=== PATIENT | male | born 2000 | race Caucasian/White ===

== ENCOUNTER 2018-12-19 15:10 | Emergency (ER) | payer BC, OTHER ==
[2018-12-19] MEDS ORDERED: NA CHLORIDE 0.9% 1,000 ML ONE (15:47)
[2018-12-19 16:28] LABS: ALT/SGPT 22 U/L (12-78); AST/SGOT 14 U/L (15-37); Albumin 3.7 g/dL (3.4-5.0); Alkaline Phosphatase 52 U/L (45-117); BUN Blood Urea Nitrogen 11 mg/dL (7-18); Bicarbonate 25 mmol/L (21-32); Bilirubin Direct < 0.1 mg/dL (0-0.2); Bilirubin Total 0.2 mg/dL (0.2-1.0); Glucose Level 99 mg/dL (74-106); Lipase 195 U/L (73-393); Potassium 4.4 mmol/L (3.5-5.1); Protein, Total 6.7 g/dL (6.4-8.2); Sodium Level 142 mmol/L (136-145)
[2018-12-19 16:36] LABS: Absolute Lymphocytes (CBC) 4.2 K/uL (0.7-4.9); Basophils % 0.5 % (0-1.3); Hematocrit 45.9 % (39.6-49.0); Lymphocytes % 36.7 % (15.3-44.8); MPV 9.9 fL (7.6-11.3); RBC Red Blood Cell Count 5.38 M/uL (4.33-5.43)
--- NOTE | 2018-12-19 17:08 | RAD REPORT ---
EXAM DESCRIPTION: CT - Abdomen Pelvis W Contrast - 12/19/2018 4:42 pm CLINICAL HISTORY: Abdominal pain COMPARISON: 2012 TECHNIQUE: Computed axial tomography of the abdomen pelvis was obtained. 100 cc Isovue-300 was admin istered intravenously. Oral contrast was not requested which limits evaluation of bowel. All CT scans are performed using dose optimization technique as appropriate and may include automated exposure control or mA/KV adjustment according to patient size. FINDINGS: The liver, spleen, pancreas, adrenal and kidneys appear unremarkable. There is no evidence of diverticulitis. Appendectomy IMPRESSION: No acute abnormality is displayed.
--- NOTE | 2018-12-19 17:31 | ER ---
Nurse's Notes [facility] Name: Kimberly Dotson Age: 18 yrs Sex: Male : 2000 Arrival Date: 12/19/2018 Time: 15:13 Bed 18 Private MD: Diagnosis: Diarrhea, unspecified;Nausea and vomiting Presentation: 12/19 15:16 Presenting complaint: Patient states: nausea/vomiting/diarrhea x 2 weeks ago. Denies aa5 abd pain, reports abd bloating. Transition of care: patient was not received from another setting of care. Onset of symptoms was November 2018. Risk Assessment: Do you want to hurt yourself or someone else? Patient reports no desire to harm self or others. Initial Sepsis Screen: Does the patient meet any 2 criteria? No. Patient's initial sepsis screen is negative. Does the patient have a suspected source of infection? No. Patient's initial sepsis screen is negative. Care prior to arrival: None. 15:16 Acuity: [place] 3 aa5 15:16 Method Of Arrival: Ambulatory aa5 Historical: - Allergies: 15:17 No Known Allergies; aa5 - PMHx: 15:17 "high potassium levels"; aa5 - PSHx: 15:17 Tonsillectomy; Appendectomy; Adenoids; aa5 - Immunization history:: Adult Immunizations up to date. - Social history:: Smoking status: Patient/guardian denies using tobacco. - Ebola Screening: : No symptoms or risks identified at this time. Screenin:41 Abuse screen: Denies threats or abuse. Denies injuries from another. Nutritional aj1 screening: No deficits noted. Tuberculosis screening: No symptoms or risk factors identified. Fall Risk None identified. Assessment: 15:41 General: Appears in no apparent distress. comfortable, Behavior is calm, cooperative, aj1 appropriate for age. Pain: Denies pain. Neuro: Level of Consciousness is awake, alert, obeys commands, Oriented to person, place, time, situation. Cardiovascular: Patient's skin is warm and dry. Respiratory: Airway is patent Respiratory effort is even, unlabored, Respiratory pattern is regular, symmetrical. GI: Abdomen is flat, non-distended, Bowel sounds present X 4 quads. Abd is soft and non tender X 4 quads. Reports diarrhea. : No signs and/or symptoms were reported regarding the genitourinary system. EENT: No signs and/or symptoms were reported regarding the EENT system. Derm: No signs and/or symptoms reported regarding the dermatologic system. Skin is pink, warm \\T\\ dry. normal. Musculoskeletal: No signs and/or symptoms reported regarding the musculoskeletal system. Circulation, motion, and sensation intact. 16:45 Reassessment: Patient appears in no apparent distress at this time. No changes from aj1 previously documented assessment. Patient and/or family updated on plan of care and expected duration. Pain level reassessed. Patient is alert, oriented x 3, equal unlabored respirations, skin warm/dry/pink. 17:17 Reassessment: Patient appears in no apparent distress at this time. No changes from aj1 previously documented assessment. Patient and/or family updated on plan of care and expected duration. Pain level reassessed. Patient is alert, oriented x 3, equal unlabored respirations, skin warm/dry/pink. 18:02 Reassessment: Patient and/or family updated on plan of care and expected duration. Pain aj1 level reassessed. General: Appears in no apparent distress. comfortable, Behavior is calm, cooperative, appropriate for age. Pain: Denies pain. Neuro: Level of Consciousness is awake, alert, obeys commands, Oriented to person, place, time, situation. Cardiovascular: Patient's skin is warm and dry. Respiratory: Airway is patent Respiratory effort is even, unlabored, Respiratory pattern is regular, symmetrical. GI: Abdomen is flat, non-distended. : No signs and/or symptoms were reported regarding the genitourinary system. Derm: No signs and/or symptoms reported regarding the dermatologic system. Skin is pink, warm \\T\\ dry. normal. Musculoskeletal: No signs and/or symptoms reported regarding the musculoskeletal system. Circulation, motion, and sensation intact. Vital Signs: 15:17 BP 131 / 77; Pulse 76; Resp 16 S; Temp 97.4(TE); Pulse Ox 99% on R/A; Pain 0/10; aa5 18:03 BP 127 / 85; Pulse 72; Resp 18; Pulse Ox 97% on R/A; aj1 ED Course: 15:13 Patient arrived in ED. as 15:16 Arm band placed on. aa5 15:17 Triage completed. aa5 15:18 Josefina Lala FNP-C [facility]. kb 15:18 Flash Mills MD is Attending Physician. kb 15:33 Radiology exam delayed due to lab results not completed at this time. (BUN/Creatinine). 15:35 Cassia Diaz, RN is Primary Nurse. aj1 15:41 Patient has correct armband on for positive identification. aj1 15:41 No provider procedures requiring assistance completed. aj1 15:46 Initial lab(s) drawn, by me, sent to lab. Inserted saline lock: 22 gauge in right jp3 antecubital area, using aseptic technique. Blood collected. Patient maintains SpO2 saturation greater than 95% on room air. 16:[address] via wheelchair. oh 16:42 CT completed. Patient tolerated procedure well. Patient moved back from CT. oh 16:42 CT Abd/Pelvis - IV Contrast Only In Process Unspecified. EDMS 18:04 IV discontinued, intact, bleeding controlled, No redness/swelling at site. Pressure aj1 dressing applied. Administered Medications: 15:50 Drug: NS 0.9% 1000 ml Route: IV; Rate: 1000 ml; Site: right antecubital; aj1 18:04 Follow up: IV Status: Completed infusion; IV Intake: 1000ml aj1 Intake: 18:04 IV: 1000ml; Total: 1000ml. aj1 Outcome: 17:30 Discharge ordered by . kb 18:09 Discharged to home ambulatory. aj1 18:09 Condition: good 18:09 Discharge instructions given to patient, Instructed on discharge instructions, follow up and referral plans. medication usage, Demonstrated understanding of instructions, follow-up care, medications. 18:09 Patient left the ED. aj1 Signatures: Dispatcher [employer] EDMD Josefina Lala FNP-C METAPHYSICS TEACHER-CkCassia Wallace, RN RN aj1 Viktoriya Eaton Amelia as Calderon, Audri, KIMO RN aa5 Fazal Vargas Jacob jp3
--- NOTE | 2018-12-19 17:32 | EDPHYS ---
Physician Documentation [facility] Name: Kimberly Dotson Age: 18 yrs Sex: Male : 2000 Arrival Date: 12/19/2018 Time: 15:13 Bed 18 Private MD: ED Physician Flash Mills HPI: 12/19 17:06 This 18 yrs old Male presents to ER via Ambulatory with complaints of kb Diarrhea. 17:06 The patient has not experienced similar symptoms in the past. The patient has not kb recently seen a physician. 17:06 The patient presents with abdominal pain in the lower abdomen. Onset: The kb symptoms/episode began/occurred 2 week(s) ago. The symptoms do not radiate. Associated signs and symptoms: Pertinent positives: nausea, vomiting, and diarrhea. The symptoms are described as constant. Modifying factors: The symptoms are alleviated by nothing, the symptoms are aggravated by nothing. Severity of pain: At its worst the pain was moderate in the emergency department the pain is unchanged. Pt reports abd pain, diarrhea and vomiting for 2 weeks.. Historical: - Allergies: 15:17 No Known Allergies; aa5 - PMHx: 15:17 "high potassium levels"; aa5 - PSHx: 15:17 Tonsillectomy; Appendectomy; Adenoids; aa5 - Immunization history:: Adult Immunizations up to date. - Social history:: Smoking status: Patient/guardian denies using tobacco. - Ebola Screening: : No symptoms or risks identified at this time. ROS: 17:04 Constitutional: Negative for fever, chills, and weight loss, ENT: Negative for injury, kb pain, and discharge, Neck: Negative for injury, pain, and swelling, Cardiovascular: Negative for chest pain, palpitations, and edema, Respiratory: Negative for shortness of breath, cough, wheezing, and pleuritic chest pain, Back: Negative for injury and pain, : Negative for injury, bleeding, discharge, and swelling, MS/Extremity: Negative for injury and deformity, Skin: Negative for injury, rash, and discoloration, Neuro: Negative for headache, weakness, numbness, tingling, and seizure. 17:04 Abdomen/GI: Positive for abdominal pain, nausea, vomiting, and diarrhea. Exam: 17:03 Constitutional: This is a well developed, well nourished patient who is awake, alert, kb and in no acute distress. Head/Face: Normocephalic, atraumatic. Neck: Trachea midline, no thyromegaly or masses palpated, and no cervical lymphadenopathy. Supple, full range of motion without nuchal rigidity, or vertebral point tenderness. No Meningismus. Chest/axilla: Normal chest wall appearance and motion. Nontender with no deformity. No lesions are appreciated. Cardiovascular: Regular rate and rhythm with a normal S1 and S2. No gallops, murmurs, or rubs. Normal PMI, no JVD. No pulse deficits. Respiratory: Lungs have equal breath sounds bilaterally, clear to auscultation and percussion. No rales, rhonchi or wheezes noted. No increased work of breathing, no retractions or nasal flaring. Back: No spinal tenderness. No costovertebral tenderness. Full range of motion. Skin: Warm, dry with normal turgor. Normal color with no rashes, no lesions, and no evidence of cellulitis. MS/ Extremity: Pulses equal, no cyanosis. Neurovascular intact. Full, normal range of motion. Neuro: Awake and alert, GCS 15, oriented to person, place, time, and situation. Cranial nerves II-XII grossly intact. Motor strength 5/5 in all extremities. Sensory grossly intact. Cerebellar exam normal. Normal gait. 17:03 Abdomen/GI: Inspection: abdomen appears normal, Bowel sounds: normal, in all quadrants, Palpation: soft, in all quadrants, mild abdominal tenderness, in the right upper quadrant, moderate abdominal tenderness, in the right lower quadrant and left lower quadrant. Vital Signs: 15:17 BP 131 / 77; Pulse 76; Resp 16 S; Temp 97.4(TE); Pulse Ox 99% on R/A; Pain 0/10; aa5 18:03 BP 127 / 85; Pulse 72; Resp 18; Pulse Ox 97% on R/A; aj1 MDM: 15:18 Patient medically screened. kb 17:03 Data reviewed: vital signs, nurses notes. Data interpreted: Pulse oximetry: on room air kb is 99 %. Interpretation: normal. 17:18 Counseling: I had a detailed discussion with the patient and/or guardian regarding: the kb historical points, exam findings, and any diagnostic results supporting the discharge/admit diagnosis, lab results, radiology results, the need for outpatient follow up, a family practitioner, to return to the emergency department if symptoms worsen or persist or if there are any questions or concerns that arise at home. 12/19 15:24 Order name: Basic Metabolic Panel; Complete Time: 16:30 kb 12/19 15:24 Order name: CBC with Diff; Complete Time: 16:50 kb 12/19 15:24 Order name: Hepatic Function; Complete Time: 16:30 kb 12/19 15:24 Order name: Lipase; Complete Time: 16:30 kb 12/19 15:24 Order name: CT Abd/Pelvis - IV Contrast Only; Complete Time: 17:15 kb 12/19 15:24 Order name: IV Saline Lock; Complete Time: 15:45 kb 12/19 15:24 Order name: Labs collected and sent; Complete Time: 15:45 kb Administered Medications: 15:50 Drug: NS 0.9% 1000 ml Route: IV; Rate: 1000 ml; Site: right antecubital; aj 18:04 Follow up: IV Status: Completed infusion; IV Intake: 1000ml aj Disposition: 12/20 08:16 Co-signature as Attending Physician, Flash Mills MD I agree with the assessment and kdr plan of care. Disposition: 12/19/18 17:30 Discharged to Home. Impression: Diarrhea, unspecified, Nausea and vomiting. - Condition is Stable. - Discharge Instructions: Nausea and Vomiting, Adult, [id number], Diarrhea, Adult, [id number]. - Prescriptions for Zofran 4 mg Oral Tablet - take 1 tablet by ORAL route every 6 hours As needed; 20 tablet. - Medication Reconciliation Form, Thank You Letter, Antibiotic Education, Prescription Opioid Use form. - Follow up: Emergency Department; When: As needed; Reason: Worsening of condition. Follow up: Private Physician; When: 2 - 3 days; Reason: Recheck today's complaints, Continuance of care, Re-evaluation by your physician. Signatures: Dispatcher [employer] Josefina Torres FNP-C FNP-Cassia Lopez RN RN aj1 Flash Mills MD MD kdr Calderon, Audri RN RN aa5 Corrections: (The following items were deleted from the chart) 12/19 18:09 17:30 12/19/2018 17:30 Discharged to Home. Impression: Diarrhea, unspecified; Nausea aj1 and vomiting. Condition is Stable. Forms are Medication Reconciliation Form, Thank You Letter, Antibiotic Education, Prescription Opioid Use. Follow up: Emergency Department; When: As needed; Reason: Worsening of condition. Follow up: Private Physician; When: 2 - 3 days; Reason: Recheck today's complaints, Continuance of care, Re-evaluation by your physician. kb
[2018-12-19 18:44] VITALS: TEMP 97.4
[2018-12-19 18:45] VITALS: BP 127/85; O2SAT 97
== END 2018-12-19 18:09 | disposition home or self-care (01) ==
LOC: ER 15:10
DX: R11.2 Nausea with vomiting, unspecified (principal)
CPT/HCPCS: 96361; 85025; 80048; 36415; 80076; 83690; 74177; 96360; 99285; Q9967; J7030

== ENCOUNTER 2019-04-08 06:27 | Emergency (ER) | payer BC ==
[2019-04-08 07:38] LABS: Basophils % 0.8 % (0-1.3); Lymphocytes % 44.1 % (15.3-44.8); MPV 10.1 fL (7.6-11.3); RBC Red Blood Cell Count 5.67 M/uL (4.33-5.43)
[2019-04-08 07:41] LABS: Protime INR 0.95
[2019-04-08 07:42] LABS: Barbiturates NEGATIVE (NEGATIVE); Benzodiazepines NEGATIVE (NEGATIVE); Cocaine NEGATIVE (NEGATIVE); METHAMPHETAM NEGATIVE (NEGATIVE); Methadone NEGATIVE (NEGATIVE); Opiates NEGATIVE (NEGATIVE); Phencyclidine NEGATIVE (NEGATIVE); THC Cannibis POSITIVE (NEGATIVE)
[2019-04-08 07:44] LABS: Urine Blood NEGATIVE (NEG); Urine Glucose NEGATIVE (NEG); Urine Protein NEGATIVE (NEG); Urine Specific Gravity >1.030 (1.005-1.030)
[2019-04-08 07:51] LABS: ALT/SGPT 17 U/L (12-78); AST/SGOT 11 U/L (15-37); Albumin 4.3 g/dL (3.4-5.0); Alkaline Phosphatase 59 U/L (45-117); BUN Blood Urea Nitrogen 13 mg/dL (7-18); Bicarbonate 23 mmol/L (21-32); Bilirubin Direct < 0.1 mg/dL (0-0.2); Bilirubin Total 0.3 mg/dL (0.2-1.0); Glucose Level 103 mg/dL (74-106); Potassium 4.2 mmol/L (3.5-5.1); Protein, Total 7.7 g/dL (6.4-8.2); Sodium Level 140 mmol/L (136-145)
--- NOTE | 2019-04-08 12:14 | EKG ---
Test Date: 2019-04-08 Test Time: 07:13:47 Copying Machine Mechanic: ALONSO MEASUREMENT RESULTS: Intervals: Rate: 72 NC: 148 QRSD: 84 QT: 354 QTc: 387 [place]: P: 23 NC: 148 QRS: 75 T: 55 INTERPRETIVE STATEMENTS: Normal sinus rhythm with sinus arrhythmia Normal ECG Compared to ECG 06/16/2014 12:39:38 No significant changes Electronically Signed On 04-08-19 12:13:39 IT PROGRAMMER by Dony Serrano
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
[2019-04-08 13:46] VITALS: BP 144/89; TEMP 98.4; O2SAT 98
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
== END 2019-04-08 13:39 | disposition home or self-care (01) ==
LOC: ER 06:27
DX: F32.9 Major depressive disorder, single episode, unspecified (principal); F41.1 Generalized anxiety disorder; F43.10 Post-traumatic stress disorder, unspecified; Z88.0 Allergy status to penicillin
CPT/HCPCS: 36415; 80048; 80076; 80307; 80320; 80329; 81003; 85025; 85610; 85730; 93005; 99284

== ENCOUNTER 2019-04-26 17:45 | Emergency (ER) | payer BC ==
--- NOTE | 2019-04-26 19:46 | EDPHYS ---
Physician Documentation [facility] Name: Kimberly Dotson Age: 19 yrs Sex: Male : 2000 Arrival Date: 04/26/2019 Time: 17:49 Bed 12 Private MD: ED Physician Flash Mills HPI: 04/25 18:58 This 19 yrs old Male presents to ER via Unassigned with complaints of Flu la1 Symptoms. 18:58 The patient or guardian reports cough. Onset: The symptoms/episode began/occurred 2 la1 day(s) ago. Modifying factors: The symptoms are alleviated by nothing. the symptoms are aggravated by nothing. Associated signs and symptoms: Pertinent positives: diarrhea. Severity of symptoms: At their worst the symptoms were mild. The patient has not experienced similar symptoms in the past. Historical: - Allergies: 19:54 PENICILLINS; dm5 - Home Meds: 19:54 None [Active]; dm5 - PMHx: 19:54 "high potassium levels"; Depression; dm5 - PSHx: 19:54 None; dm5 - Immunization history:: Adult Immunizations up to date. - Social history:: Smoking status: Patient denies any tobacco usage or history of. ROS: 18:58 Constitutional: Negative for fever, chills, and weight loss, Eyes: Negative for injury, la1 pain, redness, and discharge, ENT: Negative for injury, pain, and discharge, Neck: Negative for injury, pain, and swelling, Cardiovascular: Negative for chest pain, palpitations, and edema, Respiratory: Negative for shortness of breath, cough, wheezing, and pleuritic chest pain. 18:58 Back: Negative for injury and pain, : Negative for injury, bleeding, discharge, and swelling, MS/Extremity: Negative for injury and deformity, Neuro: Negative for headache, weakness, numbness, tingling, and seizure. 18:58 Abdomen/GI: Positive for diarrhea. Exam: 18:59 Constitutional: This is a well developed, well nourished patient who is awake, alert, la1 and in no acute distress. Head/Face: Normocephalic, atraumatic. Eyes: Pupils equal round and reactive to light, extra-ocular motions intact. ENT: Nares patent. No nasal discharge, no septal abnormalities noted. Tympanic membranes are normal and external auditory canals are clear. Oropharynx with no redness, swelling, or masses, exudates, or evidence of obstruction, uvula midline. Mucous membranes moist. Neck: Trachea midline, Chest/axilla: Normal chest wall appearance and motion. Nontender with no deformity. No lesions are appreciated. Cardiovascular: Regular rate and rhythm with a normal S1 and S2. Respiratory: Lungs have equal breath sounds bilaterally, clear to auscultation Back: No spinal tenderness. No costovertebral tenderness. Full range of motion. Skin: Warm, dry with normal turgor. Normal color with no rashes, no lesions, and no evidence of cellulitis. 18:59 Constitutional: The patient appears Vital Signs: 18:15 BP 115 / 65; Pulse 79; Resp 18; Temp 98.6; Pulse Ox 100% on R/A; dm5 MDM: 18:59 Patient medically screened. la1 19:45 Data reviewed: vital signs, nurses notes, lab test result(s), I have discussed the la1 patient's presentation/case with the attending Emergency Department Physician; and as a result, I will discharge patient. Data interpreted: Pulse oximetry: on room air is 100 %. Interpretation: normal. Counseling: I had a detailed discussion with the patient and/or guardian regarding: the historical points, exam findings, and any diagnostic results supporting the discharge/admit diagnosis, lab results, the need for outpatient follow up, a family practitioner. Special discussion: I discussed with the patient/guardian that the patient's current presentation does not indicate dosing of antibiotics. They should follow-up with their primary care provider and return if the symptoms persist or progress. 04/25 18:56 Order name: Flu la1 04/25 18:56 Order name: Strep la1 04/25 19:46 Order name: Throat Culture EDMS Administered Medications: No medications were administered Disposition: 04/26/19 19:46 Discharged to Home. Impression: Cough, Acute pharyngitis. - Condition is Stable. - Discharge Instructions: Sore Throat, Cough, Adult. - Medication Reconciliation Form, Thank You Letter form. - Follow up: Private Physician; When: 2 - 3 days; Reason: Recheck today's complaints, Re-evaluation by your physician. - Problem is new. - Symptoms have improved. Addendum: 04/29/2019 10:46 Co-signature as Attending Physician, Flash Mills MD I agree with the assessment and k dr plan of care. Signatures: Dispatcher [employer] Katie Montemayor, RN RN dm5 Flash Mills MD MD [facility] Oscar Mendoza, CONVEYANCER-C CONVEYANCER-Cla1 Corrections: (The following items were deleted from the chart) 04/25 19:58 19:46 04/26/2019 19:46 Discharged to Home. Impression: Cough; Acute pharyngitis. dm5 Condition is Stable. Forms are Medication Reconciliation Form, Thank You Letter, Antibiotic Education, Prescription Opioid Use. Follow up: Private Physician; When: 2 - 3 days; Reason: Recheck today's complaints, Re-evaluation by your physician. Problem is new. Symptoms have improved. la1
--- NOTE | 2019-04-26 19:46 | ER ---
Nurse's Notes [facility] Name: Kimberly Dotson Age: 19 yrs Sex: Male : 2000 Arrival Date: 04/26/2019 Time: 17:49 Bed 12 Private MD: Diagnosis: Cough;Acute pharyngitis Presentation: 04/25 18:15 Chief complaint: Patient states: has a cough and sore throat and will be around an dm5 immunocompromised person and wanted to get checked out. Coronavirus screen: The patient has NOT traveled to a country currently being monitored by the [facility] [place] within the last 14 days. Proceed with normal triage procedures. The patient has NOT had contact with any known and/or suspected case of coronavirus. Proceed with normal triage procedures. Ebola Screen: Patient negative for fever greater than or equal to 101.5 degrees Fahrenheit, and additional compatible Ebola Virus Disease symptoms Patient denies exposure to infectious person. Patient denies travel to an Ebola-affected area in the 21 days before illness onset. No symptoms or risks identified at this time. Initial Sepsis Screen: Does the patient meet any 2 criteria? No. Patient's initial sepsis screen is negative. Does the patient have a suspected source of infection? No. Patient's initial sepsis screen is negative. Risk Assessment: Do you want to hurt yourself or someone else? Patient reports no desire to harm self or others. 18:15 Method Of Arrival: Ambulatory dm5 18:55 Acuity: [place] 4 dm5 Triage Assessment: 19:54 General: Appears in no apparent distress. Behavior is calm, cooperative. Pain: dm5 Complains of pain in throat. Historical: - Allergies: 19:54 PENICILLINS; dm5 - Home Meds: 19:54 None [Active]; dm5 - PMHx: 19:54 "high potassium levels"; Depression; dm5 - PSHx: 19:54 None; dm5 - Immunization history:: Adult Immunizations up to date. - Social history:: Smoking status: Patient denies any tobacco usage or history of. Screenin:55 Abuse screen: Denies threats or abuse. Denies injuries from another. Nutritional dm5 screening: No deficits noted. Tuberculosis screening: No symptoms or risk factors identified. Fall Risk None identified. Assessment: 19:55 Reassessment: Patient appears in no apparent distress at this time. Patient and/or dm5 family updated on plan of care and expected duration. Pain level reassessed. Patient is alert, oriented x 3, equal unlabored respirations, skin warm/dry/pink. Vital Signs: 18:15 BP 115 / 65; Pulse 79; Resp 18; Temp 98.6; Pulse Ox 100% on R/A; dm5 ED Course: 17:49 Patient arrived in ED. mr 17:51 RejiOscar[facility] la1 17:51 Flash Mills MD is Attending Physician. la1 18:55 Triage completed. dm5 19:52 Katie Milan, RN is Primary Nurse. dm5 19:54 Arm band placed on right wrist. dm5 19:55 Patient has correct armband on for positive identification. dm5 19:55 No provider procedures requiring assistance completed. Patient did not have IV access dm5 during this emergency room visit. Administered Medications: No medications were administered Outcome: 19:46 Discharge ordered by MD. la1 19:55 Discharged to home dm5 19:55 Condition: good 19:55 Discharge instructions given to patient. 19:58 Patient left the ED. dm5 Signatures: Katie Milan, RN RN tyrel Kamar Meche mr Birdiegabe Oscar, IMELDA-C VOLUNTEER FIRE FIGHTER-Cla1
[2019-04-26 20:11] VITALS: BP 115/65; TEMP 98.6; O2SAT 100
== END 2019-04-26 19:58 | disposition home or self-care (01) ==
LOC: ER 17:45
DX: J02.9 Acute pharyngitis, unspecified (principal); Z88.0 Allergy status to penicillin
CPT/HCPCS: 87070; 87081; 87804; 99281

== ENCOUNTER 2020-02-14 13:05 | Emergency (ER) | payer BC ==
[2020-02-14 15:08] LABS: SARS-COV-2 RT PCR POSITIVE (NEGATIVE)
--- NOTE | 2020-02-14 15:48 | RAD REPORT ---
EXAM DESCRIPTION: CT - Head Brain Wo Cont - 02/14/2020 3:36 pm CLINICAL HISTORY: DIZZINESS COMPARISON: MAXILLOFACIAL W O CONTRAST dated 07/12/2010 TECHNIQUE: Axial 5 mm thick images of the head were obtained without IV contrast. All CT scans are performed using dose optimization technique as appropriate and may include automated exposure control or mA/KV adjustment according to patient size. FINDINGS: No intracranial hemorrhage, mass, edema or shift of mid-line structures. No acute infarcti on changes seen. No abnormal extra-axial fluid collections. Ventricles are normal. Mastoid air cells and visualized portions of the paranasal sinuses are clear. No acute bony findings. IMPRESSION: Negative non-contrast CT head examination.
--- NOTE | 2020-02-14 15:58 | EDPHYS ---
Physician Documentation [facility] Name: Kimberly Castaneda Age: 19 yrs Sex: Male : 2000 Arrival Date: 02/14/2020 Time: 13:12 Bed 13 Private MD: ED Physician Dhruv Sesay HPI: 02/13 16:53 This 19 yrs old Male presents to ER via Ambulatory with complaints of Cough, kb Fever, Near Syncope. 16:53 The patient or guardian reports cough, flu symptoms, low-grade fever, myalgias. Onset: kb The symptoms/episode began/occurred 3 day(s) ago. Severity of symptoms: At their worst the symptoms were moderate, in the emergency department the symptoms are unchanged. Modifying factors: The symptoms are alleviated by nothing, the symptoms are aggravated by nothing. Associated signs and symptoms: Pertinent positives: fever, nausea, sore throat. The patient has not experienced similar symptoms in the past, but family has similar symptoms, spouse. The patient has not recently seen a physician. Pt reports cough, body aches, loss of taste and smell, dizziness, nausea and headache. . Historical: - Allergies: 13:34 PENICILLINS; ca1 - PMHx: 13:34 "high potassium levels"; Depression; ca1 - PSHx: 13:34 Appendectomy; ca1 - Immunization history:: Adult Immunizations Flu vaccine is not up to date. - Social history:: Smoking status: Reported history of juuling and/or vaping. Patient uses street drugs, marijuana. ROS: 16:52 Cardiovascular: Negative for chest pain, palpitations, and edema, Back: Negative for kb injury and pain, MS/Extremity: Negative for injury and deformity, Skin: Negative for injury, rash, and discoloration. 16:52 Constitutional: Positive for body aches, chills, fatigue, fever, malaise. 16:52 Respiratory: Positive for cough, Negative for dyspnea on exertion, hemoptysis, orthopnea, pleurisy, shortness of breath, sputum production, wheezing. 16:52 Abdomen/GI: Positive for nausea. 16:52 Neuro: Positive for dizziness. Exam: 16:52 Constitutional: This is a well developed, well nourished patient who is awake, alert, kb and in no acute distress. Head/Face: Normocephalic, atraumatic. Chest/axilla: Normal chest wall appearance and motion. Nontender with no deformity. No lesions are appreciated. Cardiovascular: Regular rate and rhythm with a normal S1 and S2. No gallops, murmurs, or rubs. Normal PMI, no JVD. No pulse deficits. Respiratory: Lungs have equal breath sounds bilaterally, clear to auscultation and percussion. No rales, rhonchi or wheezes noted. No increased work of breathing, no retractions or nasal flaring. Abdomen/GI: Soft, non-tender, with normal bowel sounds. No distension or tympany. No guarding or rebound. No evidence of tenderness throughout. Skin: Warm, dry with normal turgor. Normal color with no rashes, no lesions, and no evidence of cellulitis. MS/ Extremity: Pulses equal, no cyanosis. Neurovascular intact. Full, normal range of motion. Neuro: Awake and alert, GCS 15, oriented to person, place, time, and situation. Cranial nerves II-XII grossly intact. Motor strength 5/5 in all extremities. Sensory grossly intact. Cerebellar exam normal. Normal gait. Vital Signs: 13:30 BP 126 / 87; Pulse 82; Resp 16 S; Temp 99.0(O); Pulse Ox 97% on R/A; Weight 65.77 kg ca1 (R); Height 5 ft. 11 in. (180.34 cm) (R); Pain 0/10; 15:45 BP 124 / 77 RA Supine (auto/reg); Pulse 63; Pulse Ox 98% on R/A; jp3 15:47 BP 128 / 94 RA Sitting (auto/reg); Pulse 65; Pulse Ox 98% on R/A; jp3 15:49 BP 127 / 91 RA Standing (auto/reg); Pulse 79; Pulse Ox 98% on R/A; jp3 13:30 Body Mass Index 20.22 (65.77 kg, 180.34 cm) ca1 15:45 Pt reports "heavy pressure in my head/ ringing in my ear" jp3 15:47 Pt reports "body tingles" jp3 15:49 pt states "more intense body tingles" jp3 MDM: 15:06 Patient medically screened. kb 16:53 Data reviewed: vital signs, nurses notes. Data interpreted: Pulse oximetry: on room air kb is 98 %. Interpretation: normal. Counseling: I had a detailed discussion with the patient and/or guardian regarding: the historical points, exam findings, and any diagnostic results supporting the discharge/admit diagnosis, lab results, radiology results, the need for outpatient follow up, a family practitioner, to return to the emergency department if symptoms worsen or persist or if there are any questions or concerns that arise at home. 02/13 15:08 Order name: COVID-19/FLU A+B; Complete Time: 15:08 EDMS 02/13 15:24 Order name: CT Head Brain wo Cont; Complete Time: 15:57 kb 02/13 15:24 Order name: Orthostatics; Complete Time: 15:54 kb Administered Medications: No medications were administered Disposition: 02/14/20 15:58 Discharged to Home. Impression: Coronavirus infection, unspecified. - Condition is Stable. - Discharge Instructions: Viral Respiratory Infection, Fovc-Lr-Gven, COVID-19. - Prescriptions for Zofran 4 mg Oral Tablet - take 1 tablet by ORAL route every 6 hours As needed; 20 tablet. - Medication Reconciliation Form, Thank You Letter, Antibiotic Education, Prescription Opioid Use, Work release form form. - Follow up: Emergency Department; When: As needed; Reason: Worsening of condition. Follow up: Private Physician; When: 2 - 3 days; Reason: Recheck today's complaints, Continuance of care, Re-evaluation by your physician. Addendum: 02/16/2020 07:38 Co-signature as Attending Physician, Dhruv Sesay MD I agree with the assessment and t w4 plan of care. Signatures: Dispatcher [employer] [facility] Josefina Lala, EYEGLASS FRAME TRUER-C EYEGLASS FRAME TRUER-Facundo Foster, RN RN bp Dhruv Sesay MD MD tw4 Priyanka James RN RN ca1 Corrections: (The following items were deleted from the chart) 02/13 14:15 13:55 Influenza Screen (A \\T\\ B)+BA.LAB.BRZ ordered. [facility] EDAZ 14:16 13:55 CORONAVIRUS+MR.LAB.BRZ ordered. [facility] EDMS 16:18 15:58 02/14/2020 15:58 Discharged to Home. Impression: Coronavirus infection, bp unspecified. Condition is Stable. Forms are Medication Reconciliation Form, Thank You Letter, Antibiotic Education, Prescription Opioid Use. Follow up: Emergency Department; When: As needed; Reason: Worsening of condition. Follow up: Private Physician; When: 2 - 3 days; Reason: Recheck today's complaints, Continuance of care, Re-evaluation by your physician. kb
--- NOTE | 2020-02-14 15:58 | ER ---
[facility] Name: Kimberly Castaneda Age: 19 yrs Sex: Male : 2000 Arrival Date: 02/14/2020 Time: 13:12 Bed 13 Private MD: Diagnosis: Coronavirus infection, unspecified Presentation: 02/13 13:30 Chief complaint: Patient states: Last night, was making waffles at the kitchen then ca1 passed out. Couldn't open my eyes, threw up, trying not to poop on myself and was profusely sweating. Then I got better. Today, I was walking my dog and I got dizzy like I will pass out again. Had Covid testing, pending result. Covid S/S fever, cough, no taste and smell x 3 days. Coronavirus screen: cough unrelated to allergies, fever, loss of taste or smell, Client presents with at least one sign or symptom that may indicate coronavirus-19. Standard/surgical mask placed on the client. Provider contacted for isolation considerations. Coronavirus screen: The client indicates previous COVID test results are pending. Date of collection: February 13, 2020. Ebola Screen: Patient negative for fever greater than or equal to 101.5 degrees Fahrenheit, and additional compatible Ebola Virus Disease symptoms Patient denies exposure to infectious person. Patient denies travel to an Ebola-affected area in the 21 days before illness onset. No symptoms or risks identified at this time. Initial Sepsis Screen: Does the patient meet any 2 criteria? No. Patient's initial sepsis screen is negative. Does the patient have a suspected source of infection? No. Patient's initial sepsis screen is negative. Risk Assessment: Do you want to hurt yourself or someone else? Patient reports no desire to harm self or others. Onset of symptoms was February 14, 2020. 13:30 Method Of Arrival: Ambulatory ca1 13:30 Acuity: [place] 3 ca1 Triage Assessment: 15:30 General: Appears in no apparent distress. uncomfortable, ill, Behavior is cooperative, bp appropriate for age, anxious. Pain: Denies pain. EENT: No deficits noted. Neuro: Reports a syncopal episode. Cardiovascular: No deficits noted. Respiratory: Reports cough that is. GI: No signs and/or symptoms were reported involving the gastrointestinal system. : No signs and/or symptoms were reported regarding the genitourinary system. Derm: No deficits noted. Musculoskeletal: No deficits noted. Historical: - Allergies: 13:34 PENICILLINS; ca1 - PMHx: 13:34 "high potassium levels"; Depression; ca1 - PSHx: 13:34 Appendectomy; ca1 - Immunization history:: Adult Immunizations Flu vaccine is not up to date. - Social history:: Smoking status: Reported history of juuling and/or vaping. Patient uses street drugs, marijuana. Screenin:30 Abuse screen: Denies threats or abuse. Denies injuries from another. Nutritional bp screening: No deficits noted. Tuberculosis screening: No symptoms or risk factors identified. Fall Risk None identified. Assessment: 15:30 General: SEE TRIAGE NOTE. bp 16:07 Reassessment: PT D/C HOME AMBULATORY WITH FAMILY, DX WITH CORONAVIRUS URI. bp Vital Signs: 13:30 BP 126 / 87; Pulse 82; Resp 16 S; Temp 99.0(O); Pulse Ox 97% on R/A; Weight 65.77 kg ca1 (R); Height 5 ft. 11 in. (180.34 cm) (R); Pain 0/10; 15:45 BP 124 / 77 RA Supine (auto/reg); Pulse 63; Pulse Ox 98% on R/A; jp3 15:47 BP 128 / 94 RA Sitting (auto/reg); Pulse 65; Pulse Ox 98% on R/A; jp3 15:49 BP 127 / 91 RA Standing (auto/reg); Pulse 79; Pulse Ox 98% on R/A; jp3 13:30 Body Mass Index 20.22 (65.77 kg, 180.34 cm) ca1 15:45 Pt reports "heavy pressure in my head/ ringing in my ear" jp3 15:47 Pt reports "body tingles" jp3 15:49 pt states "more intense body tingles" jp3 ED Course: 13:12 Patient arrived in ED. rg4 13:33 Triage completed. ca1 13:34 Arm band placed on right wrist. ca1 13:52 Josefina Lala FNP-C [facility]. kb 13:52 Dhruv Sesay MD is Attending Physician. kb 13:55 Pulse ox on. NIBP on. jp3 13:55 COVID swab sent to lab. Flu and/or RSV swab sent to lab. jp3 15:30 Patient has correct armband on for positive identification. Bed in low position. Call bp light in reach. Side rails up X2. 15:31 Facundo Wei, RN is Primary Nurse. bp 15:36 CT Head Brain wo Cont In Process Unspecified. EDMS 16:07 No provider procedures requiring assistance completed. Patient did not have IV access bp during this emergency room visit. Administered Medications: No medications were administered Outcome: 15:58 Discharge ordered by . christa 16:08 Discharged to home ambulatory. bp 16:08 Condition: stable 16:08 Discharge instructions given to patient, Instructed on discharge instructions, follow up and referral plans. medication usage, Demonstrated understanding of instructions, follow-up care, medications, Prescriptions given X 1. 16:18 Patient left the ED. bp Signatures: Dispatcher [employer] [facility] Josefina Lala, SIGNING TEACHER-C SIGNING TEACHER-Mary Brown rg4 Facundo Wei, RN RN bp Tobi Doherty jp3 Priyanka James, RN RN ca1
[2020-02-14 16:22] VITALS: TEMP 99
[2020-02-14 16:23] VITALS: O2SAT 98
[2020-02-14 16:25] VITALS: BP 127/91
== END 2020-02-14 16:18 | disposition home or self-care (01) ==
LOC: ER 13:05
DX: U07.1 COVID-19 (principal); Z88.0 Allergy status to penicillin; Z87.891 Personal history of nicotine dependence
CPT/HCPCS: 0240U; 70450; 99284

== ENCOUNTER 2020-08-10 18:26 | Emergency (ER) | payer BC ==
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
[2020-08-10 19:20] LABS: Urine Blood Negative (Negative); Urine Glucose Negative (Negative); Urine Protein Negative (Negative)
[2020-08-10] MEDS ORDERED: HYDROCODONE/APAP 5/325 MG TAB ONE (19:35)
[2020-08-10 19:56] LABS: Urine Bacteria NONE SEEN /HPF (NONE SEEN); Urine RBC <5 /HPF (NONE SEEN); Urine Sperm PRESENT (NONE SEEN)
--- NOTE | 2020-08-10 20:51 | RAD REPORT ---
EXAM DESCRIPTION: US - Scrotum Testicles - 08/10/2020 8:09 pm CLINICAL HISTORY: Swelling;Pain COMPARISON: Abdomen Pelvis W Contrast dated 12/19/2018 FINDINGS: Both testicles show homogeneous echogenicity with no intratesticular mass lesion. Doppler evaluation shows normal blood flow in each testicle. No epididymis enlargement or hyperemia. An incid ental right epididymal 7 mm cyst seen. Patient has bilateral benign-appearing inguinal lymph nodes. No suspicious characteristics. Patient appears to have a small fat only left inguinal hernia. No bowel involvement seen. IMPRESSION: No testicle or epididymis significant finding. Normal blood flow is identifiable. Small fat only left inguinal hernia.
--- NOTE | 2020-08-10 20:56 | ER ---
Nurse's Notes [facility] Name: Kimberly Castaneda Age: 20 yrs Sex: Male : 2000 Arrival Date: 08/10/2020 Time: 18:31 Bed 8 Private MD: Diagnosis: Testicular pain Presentation: 08/10 18:39 Chief complaint: Patient states: Testicular pain and swelling that began this morning. ss Pt reports it woke him up out of his sleep. Coronavirus screen: Client denies travel out of the [place] in the last 14 days. Ebola Screen: Patient denies exposure to infectious person. Patient denies travel to an Ebola-affected area in the 21 days before illness onset. Initial Sepsis Screen: Does the patient meet any 2 criteria? No. Patient's initial sepsis screen is negative. Does the patient have a suspected source of infection? No. Patient's initial sepsis screen is negative. Risk Assessment: Do you want to hurt yourself or someone else? Patient reports no desire to harm self or others. Note Pt reports that he was unable to have an erection or ejaculate last night which was not normal for him. Onset of symptoms was August 09, 2020. 18:39 Method Of Arrival: Ambulatory 18:39 Acuity: [place] 3 ss Historical: - Allergies: 18:42 PENICILLINS; ss - PMHx: 18:42 Depression; ss - PSHx: 18:42 Appendectomy; Tonsillectomy; Adenoids; ss - Immunization history:: Adult Immunizations up to date. - Social history:: Smoking status: Reported history of juuling and/or vaping. Patient uses street drugs, marijuana. Screenin:23 Abuse screen: Denies threats or abuse. Denies injuries from another. Nutritional ad5 screening: No deficits noted. Tuberculosis screening: No symptoms or risk factors identified. Fall Risk None identified. Assessment: 19:21 General: Appears in no apparent distress. Behavior is calm, cooperative, appropriate ad5 for age. Pain: Complains of pain in L and R testicle. Neuro: No deficits noted. Level of Consciousness is awake, alert, obeys commands, Oriented to person, place, time, situation, Appropriate for age. Cardiovascular: No deficits noted. Capillary refill < 3 seconds Patient's skin is warm and dry. Respiratory: No deficits noted. Airway is patent Respiratory effort is even, unlabored, Respiratory pattern is regular, symmetrical. GI: Reports nausea. : Reports burning with urination, pain scrotum, Scrotal pain: sudden onset. 20:37 Reassessment: Patient appears in no apparent distress at this time. Patient and/or ad5 family updated on plan of care and expected duration. Pain level reassessed. Patient is alert, oriented x 3, equal unlabored respirations, skin warm/dry/pink. 21:18 Reassessment: Patient and/or family updated on plan of care and expected duration. Pain ea level reassessed. Patient is alert, oriented x 3, equal unlabored respirations, skin warm/dry/pink. Discharge instruction given to patient verbalized the understanding of instruction. Pt left ED ambulatory tolerating well. Vital Signs: 18:39 BP 137 / 88; Pulse 84; Resp 18; Temp 98.2(TE); Pulse Ox 99% on R/A; Weight 61.69 kg; ss Height 5 ft. 11 in. (180.34 cm); Pain 8/10; 20:52 BP 125 / 82; Pulse 66; Resp 16 S; Pulse Ox 99% on R/A; Pain 3/10; ad5 18:39 Body Mass Index 18.97 (61.69 kg, 180.34 cm) ss ED Course: 18:31 Patient arrived in ED. mr 18:41 Triage completed. ss 18:42 Arm band placed on right wrist. ss 19:02 Josefina Lala FNP-C is PHCP. kb 19:02 Yovany Perkins MD is Attending Physician. kb 19:10 Wali Mahmood is Primary Nurse. ad5 19:23 Patient has correct armband on for positive identification. Placed in gown. Bed in low ad5 position. Call light in reach. Side rails up X 1. Adult w/ patient. Door closed. Noise minimized. Warm blanket given. 19:23 No provider procedures requiring assistance completed. Urine collected: clean catch ad5 specimen, clear. 20:10 US Scrotum Testicles In Process Unspecified. EDMS 21:18 Patient did not have IV access during this emergency room visit. ea Administered Medications: 19:09 CANCELLED (Duplicate Order): Continental (HYDROcodone-acetaminophen) (7.5 mg-325 mg) 1 tabs kb PO once; RASS on ADMIN: Combtv4, Very Agttd3, Agttd2, Rstlss1, AlertClm0, Drwsy-1, Lt Sdtn-2, Mod Sdtn-3, Dp Sdtn-4, UnArsble-5 19:21 Drug: Continental (HYDROcodone-acetaminophen) 5 mg-325 mg 1 tabs {Note: RASS 0.} Route: PO; ad5 20:37 Follow up: Response: No adverse reaction ad5 Outcome: 20:56 Discharge ordered by MD. goodwin 21:18 Discharged to home ambulatory. ea 21:18 Condition: stable 21:18 Discharge instructions given to patient, Instructed on discharge instructions, follow up and referral plans. Demonstrated understanding of instructions, follow-up care. 21:19 Patient left the ED. conner Signatures: Dispatcher [employer] EDJosefina Swift, JANNETHC BONER MEAT-Meche Taveras Shelby, RN Jolynn Monroy RN RN ea Davidson, Andrea ad5
--- NOTE | 2020-08-10 20:56 | EDPHYS ---
Physician Documentation [facility] Name: Kimberly Castaneda Age: 20 yrs Sex: Male : 2000 Arrival Date: 08/10/2020 Time: 18:31 Bed 8 Private MD: ED Physician Yovany Perkins HPI: 08/10 19:46 This 20 yrs old Male presents to ER via Ambulatory with complaints of kb Testicular Pain. 19:46 The patient presents with scrotal pain, of both sides, in the area of the epidydimis, kb tenderness, urinary symptoms, dysuria. Onset: The symptoms/episode began/occurred this morning. Modifying factors: The symptoms are alleviated by nothing, the symptoms are aggravated by movement, pressure. Associated signs and symptoms: Pertinent positives: dysuria, Pertinent negatives: abdominal pain, constipation, diarrhea, fever, hematuria, nausea, vomiting. Severity of symptoms: At their worst the symptoms were moderate, in the emergency department the symptoms are unchanged. The patient has not experienced similar symptoms in the past. The patient has not recently seen a physician. Pt reports testicular pain/tenderness and dysuria that started this morning. Historical: - Allergies: 18:42 PENICILLINS; ss - PMHx: 18:42 Depression; ss - PSHx: 18:42 Appendectomy; Tonsillectomy; Adenoids; ss - Immunization history:: Adult Immunizations up to date. - Social history:: Smoking status: Reported history of juuling and/or vaping. Patient uses street drugs, marijuana. ROS: 19:45 Constitutional: Negative for fever, chills, and weight loss. kb 19:45 : Positive for urinary symptoms, burning with urination, testicular pain 19:45 All other systems are negative. Exam: 19:45 Constitutional: This is a well developed, well nourished patient who is awake, alert, kb and in no acute distress. Head/Face: Normocephalic, atraumatic. ENT: Moist Mucous membranes Cardiovascular: Regular rate and rhythm with a normal S1 and S2. No gallops, murmurs, or rubs. No pulse deficits. Respiratory: Respirations even and unlabored. No increased work of breathing, no retractions or nasal flaring. Abdomen/GI: Soft, non-tender. No distention Skin: Warm, dry with normal turgor. Normal color. MS/ Extremity: Pulses equal, no cyanosis. Neurovascular intact. Full, normal range of motion. Neuro: Awake and alert, GCS 15, oriented to person, place, time, and situation. Moves all extremities. Normal gait. Psych: Awake, alert, with orientation to person, place and time. Behavior, mood, and affect are within normal limits. 19:45 : Male external genitalia: tenderness, of the epididymis area, that is moderate. Vital Signs: 18:39 BP 137 / 88; Pulse 84; Resp 18; Temp 98.2(TE); Pulse Ox 99% on R/A; Weight 61.69 kg; ss Height 5 ft. 11 in. (180.34 cm); Pain 8/10; 20:52 BP 125 / 82; Pulse 66; Resp 16 S; Pulse Ox 99% on R/A; Pain 3/10; ad5 18:39 Body Mass Index 18.97 (61.69 kg, 180.34 cm) ss MDM: 19:02 Patient medically screened. kb 19:45 Data reviewed: vital signs, nurses notes. Data interpreted: Pulse oximetry: on room air kb is 99 %. Interpretation: normal. 20:54 Counseling: I had a detailed discussion with the patient and/or guardian regarding: the kb historical points, exam findings, and any diagnostic results supporting the discharge/admit diagnosis, lab results, radiology results, the need for outpatient follow up, a urologist, to return to the emergency department if symptoms worsen or persist or if there are any questions or concerns that arise at home. 20:57 ED course: Pt resting comfortably on stretcher. Educated on findings and need for kb follow up with urologist for continued symptoms. Pt will return for worsening symptoms. No testicular tenderness, discoloration or swelling on exam. . 08/10 19:09 Order name: Urine Microscopic Only kb 08/10 19:09 Order name: Urine Microscopic Only; Complete Time: 19:59 EDMS 08/10 18:52 Order name: US Scrotum Testicles; Complete Time: 20:53 kb 08/10 19:21 Order name: Urine Dipstick-Ancillary; Complete Time: 19:21 EDMS 08/10 19:08 Order name: Urine Dipstick-Ancillary (obtain specimen); Complete Time: 19:21 kb Administered Medications: 19:09 CANCELLED (Duplicate Order): [place] (HYDROcodone-acetaminophen) (7.5 mg-325 mg) 1 tabs kb PO once; RASS on ADMIN: Combtv4, Very Agttd3, Agttd2, Rstlss1, AlertClm0, Drwsy-1, Lt Sdtn-2, Mod Sdtn-3, Dp Sdtn-4, UnArsble-5 19:21 Drug: [place] (HYDROcodone-acetaminophen) 5 mg-325 mg 1 tabs {Note: RASS 0.} Route: PO; ad5 20:37 Follow up: Response: No adverse reaction ad5 Disposition: 08/10/20 20:56 Discharged to Home. Impression: Testicular pain. - Condition is Stable. - Discharge Instructions: Testicular Self-Exam, Ciwy-ch-Ejiz. - Medication Reconciliation Form, Thank You Letter, Antibiotic Education, Prescription Opioid Use form. - Follow up: Emergency Department; When: As needed; Reason: Worsening of condition. Follow up: Private Physician; When: 2 - 3 days; Reason: Recheck today's complaints, Continuance of care, Re-evaluation by your physician. Addendum: 08/11/2020 09:54 Co-signature as Attending Physician, Yovany Perkins MD. r n Signatures: Dispatcher [employer] EDMS Josefina Lala, SANITATION OFFICER-C SANITATION OFFICER-Ckb Yovany Perkins MD MD rn Smirch, Shelby, RN RN ss Antunez, Elena, RN RN ea Davidson, Andrea ad5 Corrections: (The following items were deleted from the chart) 08/10 19:09 19:09 [place] (HYDROcodone-acetaminophen) (7.5 mg-325 mg) 1 tabs PO once; RASS on ADMIN: kb Combtv4, Very Agttd3, Agttd2, Rstlss1, AlertClm0, Drwsy-1, Lt Sdtn-2, Mod Sdtn-3, Dp Sdtn-4, UnArsble-5 ordered. kb 21:19 20:56 08/10/2020 20:56 Discharged to Home. Impression: Testicular pain. Condition is ea Stable. Forms are Medication Reconciliation Form, Thank You Letter, Antibiotic Education, Prescription Opioid Use. Follow up: Emergency Department; When: As needed; Reason: Worsening of condition. Follow up: Private Physician; When: 2 - 3 days; Reason: Recheck today's complaints, Continuance of care, Re-evaluation by your physician. kb
[2020-08-10 21:57] VITALS: TEMP 98.2; O2SAT 99
[2020-08-10 21:59] VITALS: BP 125/82
== END 2020-08-10 21:19 | disposition home or self-care (01) ==
LOC: ER 18:26
DX: N50.819 Testicular pain, unspecified (principal); Z88.0 Allergy status to penicillin
CPT/HCPCS: 76870; 81003; 81015; 99283

== ENCOUNTER 2021-05-21 22:37 | Emergency (ER) | payer BC, SELFPAY ==
--- OUTSIDE RECORDS SUMMARY | 2021-05-21 22:41 | XMS REPORT | Continuity of Care Document ---
:2000 Author Organization [facility] t Address [facility] [address] [place] [address] Care Team Providers Name Role Phone Unavailable Unavailable Unavailable Problems This patient has no known problems. Allergies, Adverse Reactions, Alerts This patient has no known allergies or adverse reactions. Medications This patient has no known medications. Procedures This patient has no known procedures. Encounters Start End Encounter Admission Attending Care Care Encounter Source Date/Time Date/Time Type Type Clinicians Facility Department ID 2018-07-14 2018-07-14 Emergency [facility] [id number] 1 [place] 22:00:13 22:00:13 Health 2018-07-14 2018-07-14 Emergency [facility] MED [id number] 2 [place] 20:42:19 20:42:19 Health Results This patient has no known results.
--- NOTE | 2021-05-21 22:55 | EDPHYS ---
Physician Documentation [facility] Name: Kimberly Castaneda Age: 21 yrs Sex: Male : 2000 Arrival Date: 05/21/2021 Time: 22:43 Bed 6 Private MD: ED Physician Gaurav Garcia HPI: 05/21 22:56 This 21 yrs old Male presents to ER via Ambulatory with complaints of Hemorrhoids. ms3 22:56 The patient presents to the emergency department with pain in the rectal area, that is ms3 severe. Onset: The symptoms/episode began/occurred 5 day(s) ago. Context: the patient has no known special context relating to the rectal area complaint(s). Modifying factors: The symptoms are alleviated by nothing, The symptoms are aggravated by bowel movement. Associate signs and symptoms: The patient has no apparent associated signs or symptoms. 21-year-old male with no past medical history presents for external hemorrhoids that began on Monday. Patient states the pain is severe. Patient also notes itching. Patient denies alleviating factors. Patient states the pain becomes worse with bowel movements. She endorses abdominal pain, back pain, leg pain. Patient denies fevers, chills, nausea, vomiting.. Historical: - Allergies: 22:55 PENICILLINS; lg3 - Immunization history:: Client reports having NOT received the Covid vaccine. - Social history:: Smoking status: Reported history of juuling and/or vaping. ROS: 22:56 Constitutional: Negative for fever, and chills. ENT: Negative for injury, pain, and ms3 discharge, Neck: Negative for injury, pain, and swelling, Cardiovascular: Negative for chest pain, and palpitations. Respiratory: Negative for shortness of breath, cough, wheezing, and pleuritic chest pain, MS/Extremity: Negative for injury and deformity, Skin: Negative for injury, rash, and discoloration, Neuro: Negative for headache, weakness, numbness, tingling. 22:56 Abdomen/GI: Positive for rectal pain. 22:56 All other systems are negative. Exam: 22:56 Constitutional: This is a well developed, well nourished patient who is awake, alert, ms3 and in no acute distress. Head/Face: Normocephalic, atraumatic. Neck: Trachea midline, no cervical lymphadenopathy. Supple, full range of motion without nuchal rigidity, or vertebral point tenderness. No Meningismus. Chest/axilla: Normal chest wall appearance and motion. Nontender with no deformity. Cardiovascular: Regular rate and rhythm with a normal S1 and S2. No gallops, murmurs, or rubs. Normal PMI, no JVD. No pulse deficits. Respiratory: Lungs have equal breath sounds bilaterally, clear to auscultation and percussion. No rales, rhonchi or wheezes noted. No increased work of breathing, no retractions or nasal flaring. MS/ Extremity: Pulses equal, no cyanosis. Neurovascular intact. Full, normal range of motion. Psych: Awake, alert, with orientation to person, place and time. Behavior, mood, and affect are within normal limits. 22:56 Abdomen/GI: Inspection: abdomen appears normal, Bowel sounds: normal, Palpation: abdomen is soft and non-tender, Rectal exam: hemorrhoid(s), external, with inflammation, with pain, without bleeding. Vital Signs: 22:53 BP 148 / 90; Pulse 90; Resp 15; Pulse Ox 99% on R/A; Weight 66.22 kg (R); Height 5 ft. lg3 11 in. (180.34 cm); 22:53 Body Mass Index 20.36 (66.22 kg, 180.34 cm) lg3 MDM: 22:52 Patient medically screened. ms3 22:56 Differential diagnosis: hemorrhoids. Data reviewed: vital signs, nurses notes. ms3 Counseling: I had a detailed discussion with the patient and/or guardian regarding: the historical points, exam findings, and any diagnostic results supporting the discharge/admit diagnosis, the need for outpatient follow up, to return to the emergency department if symptoms worsen or persist or if there are any questions or concerns that arise at home. ED course: Discussed physical exam findings with patient. Patient to follow-up with Dr. Brannon within the next week. Patient understands agrees with plan. All questions were answered. Return precautions discussed include worsening symptoms, or any other concerns.. Administered Medications: No medications were administered Disposition Summary: 05/21/21 22:55 Discharge Ordered Location: Home ms3 Problem: new ms3 Symptoms: are unchanged ms3 Condition: Stable ms3 Diagnosis - Rectal pain ms3 - External hemorrhoid ms3 Discharge Instructions: - Discharge Summary Sheet ms3 - Hemorrhoids, [id number] ms3 Forms: - Medication Reconciliation Form ms3 - Thank You Letter ms3 - Antibiotic Education ms3 - Prescription Opioid Use ms3 Prescriptions: - Anusol-HC 25 mg Rectal Suppository - insert 1 suppository by RECTAL route every 12 hours As needed; 20 suppository; ms3 Refills: 0, Product Selection Permitted Signatures: Jeanette Chawla RN RN lg3 Gaurav Garcia DO DO ms3
--- NOTE | 2021-05-21 23:12 | ER ---
Nurse's Notes [facility] Name: Kimberly Castaneda Age: 21 yrs Sex: Male : 2000 Arrival Date: 05/21/2021 Time: 22:43 Bed 6 Private MD: Diagnosis: Rectal pain;External hemorrhoid Presentation: 05/21 22:53 Chief complaint: Patient states: States on Monday night I used the restroom and when I lg3 wiped there was blood on the toilet paper, states been having diarrhea and constipation on and off for the past 8 months. Coronavirus screen: At this time, the client does not indicate any symptoms associated with coronavirus-19. Ebola Screen: No symptoms or risks identified at this time. Initial Sepsis Screen: Does the patient meet any 2 criteria? No. Patient's initial sepsis screen is negative. Does the patient have a suspected source of infection? No. Patient's initial sepsis screen is negative. Risk Assessment: Do you want to hurt yourself or someone else? Patient reports no desire to harm self or others. Onset of symptoms was May 15, 2021. 22:53 Method Of Arrival: Ambulatory lg3 22:53 Acuity: [place] 4 lg3 Triage Assessment: 22:55 General: Appears uncomfortable, Behavior is calm, cooperative. Pain: Complains of pain lg3 in gluteal cleft. Neuro: Level of Consciousness is awake, alert, obeys commands, Oriented to person, place, time, situation. GI: Reports Hemorrhoids. Derm: Large hemorrhoid noted to rectum. Historical: - Allergies: 22:55 PENICILLINS; lg3 - Immunization history:: Client reports having NOT received the Covid vaccine. - Social history:: Smoking status: Reported history of juuling and/or vaping. Screenin:06 Abuse screen: Denies threats or abuse. Denies injuries from another. Nutritional lg3 screening: No deficits noted. Tuberculosis screening: No symptoms or risk factors identified. Fall Risk None identified. Assessment: 23:06 General: Appears in no apparent distress. comfortable, Behavior is calm, cooperative. lg3 Pain: Complains of pain in buttocks and gluteal cleft. Neuro: No deficits noted. Level of Consciousness is awake, alert, obeys commands, Oriented to person, place, time, situation. Cardiovascular: No deficits noted. Denies chest pain, shortness of breath, Capillary refill < 3 seconds Clubbing of nail beds is absent JVD is absent Patient's skin is warm and dry. Respiratory: No deficits noted. Airway is patent Trachea midline Respiratory effort is even, unlabored, Respiratory pattern is regular, symmetrical. GI: Abdomen is flat, non-distended, Reports lower abdominal pain, upper abdominal pain, constipation, cramping, diarrhea, rectal bleeding, bloody stool. : No deficits noted. No signs and/or symptoms were reported regarding the genitourinary system. EENT: No deficits noted. No signs and/or symptoms were reported regarding the EENT system. Derm: No deficits noted. No signs and/or symptoms reported regarding the dermatologic system. Skin is intact, is healthy with good turgor, Skin is dry. Musculoskeletal: No deficits noted. No signs and/or symptoms reported regarding the musculoskeletal system. Vital Signs: 22:53 BP 148 / 90; Pulse 90; Resp 15; Pulse Ox 99% on R/A; Weight 66.22 kg (R); Height 5 ft. lg3 11 in. (180.34 cm); 22:53 Body Mass Index 20.36 (66.22 kg, 180.34 cm) lg3 ED Course: 22:43 Patient arrived in ED. mr 22:43 Gaurav Garcia DO is Attending Physician. ms3 22:50 Jeanette Chawla, RN is Primary Nurse. lg3 22:55 Triage completed. lg3 22:55 Arm band placed on Patient placed in an exam room, on a stretcher, on pulse oximetry. lg3 23:06 Patient has correct armband on for positive identification. Placed in gown. Bed in low lg3 position. Call light in reach. Side rails up X 1. Pulse ox on. NIBP on. Door closed. Noise minimized. Warm blanket given. 23:06 No provider procedures requiring assistance completed. Patient did not have IV access lg3 during this emergency room visit. Administered Medications: No medications were administered Outcome: 22:55 Discharge ordered by . ms3 23:06 Discharged to home ambulatory. lg3 23:06 Condition: stable 23:06 Discharge instructions given to patient, Instructed on discharge instructions, medication usage, Prescriptions given X 1. 23:12 Patient left the ED. lg3 Signatures: GalvinMeche Lacie, RN RN lg3 Gaurav Garcia DO DO ms3 Corrections: (The following items were deleted from the chart) 22:59 22:53 BP 148 / 90; Pulse 90bpm; Resp 15bpm; Pulse Ox 99% RA; lg3 lg3
[2021-05-22 05:42] VITALS: BP 148/90; O2SAT 99
== END 2021-05-21 23:12 | disposition home or self-care (01) ==
LOC: ER 22:37
DX: K64.4 Residual hemorrhoidal skin tags (principal); Z88.0 Allergy status to penicillin
CPT/HCPCS: 99283

== ENCOUNTER 2021-06-11 07:29 | Day surgery (SDC) | payer BC ==
[2021-06-10 09:42] LABS: Absolute Lymphocytes (CBC) 3.7 K/uL (0.7-4.9); Hematocrit 43.3 % (39.6-49.0); Lymphocytes % 50.8 % (15.3-44.8); MPV 8.7 fL (7.6-11.3); RBC Red Blood Cell Count 4.89 M/uL (4.33-5.43)
[2021-06-11] MEDS ORDERED: Ringers Lactate 1,000 ML IV ONE (07:53)
[2021-06-11] MEDS ORDERED: propofoL 200 MG/20 ML VIAL IV ONE ×2 (08:47→08:52)
[2021-06-11] MEDS ORDERED: LIDOCAINE 1% MPF 30 ML VIAL ONE (08:47)
[2021-06-11] MEDS ORDERED: GLYCOPYRROLATE 0.2 MG/ML SYR ONE (08:49)
--- NOTE | 2021-06-11 09:10 | ENDO RPT ---
[address], [address] COLONOSCOPY PROCEDURE REPORT EXAM DATE: 06/11/2021 PATIENT NAME: Kimberly Castaneda MR #: [id number] BIRTHDATE: 2000 ATTENDING: Donald Zamarripa DR STATUS: outpatient TANBARK LABORER: Todd Fenton and Violeta Savage RN INDICATIONS: The patient is a 21 yr old Male here for a colonoscopy due to bright red bleeding PROCEDURE PERFORMED: Screening Colonoscopy MEDICATIONS: Per Anesthesia. ESTIMATED BLOOD LOSS: None CONSENT: The patient understands the risks and benefits of the procedure and understands that these risks include, but are not limited to: sedation, allergic reaction, infection, perforation and/or bleeding. Alternative means of evaluation and treatment include, among others: physical exam, x-rays, and/or surgical intervention. The patient elects to proceed with this endoscopic procedure. DESCRIPTION OF PROCEDURE: During intra-op preparation period all mechanical medical equipment was checked for proper function. Hand hygiene and appropriate measures for infection prevention was taken. Procedure, possible complications, alternatives including, but not limited to possibility of bleeding, perforation, tear, infection, sepsis, need for surgery, need for blood transfusion, were explained to the patient. After the risks, benefits and alternatives of the procedure were thoroughly explained, Informed consent was verified, confirmed and timeout was successfully executed by the treatment team. The patient was placed in the left lateral position. A digital rectal exam was performed and revealed internal hemorrhoids. After appropriate level of anesthesia, the scope was passed. The EC-[id number] ([id number]) endoscope was introduced through the anus and advanced to the cecum, which was identified by both the appendix and ileocecal valve. The quality of the prep was fair. The instrument was then slowly withdrawn as the colon was fully examined. Scope withdrawal time was 7 minutes. COLON FINDINGS: Moderate sized internal hemorrhoids were found. The colon mucosa was otherwise normal. Retroflexed views revealed no abnormalities. The scope was then completely withdrawn from the patient and the procedure terminated. ADVERSE EVENTS: There were no complications. IMPRESSIONS: 1. Moderate sized internal hemorrhoids 2. The colon mucosa was otherwise normal RECOMMENDATIONS: 1. follow-up: office 2 week(s) 2. fiber rich diet 3. avoid NSAIDS for 2 weeks 4. Monitor for any evidence of rectal bleeding. 5. hemorrhoidal hygiene RECALL: Donald Zamarripa DR eSigned: Donald Zamarripa DR 06/11/2021 9:09 AM cc: CPT CODES: ICD9 CODES: PATIENT NAME: Kimberly CasatnedaNoe MR#: [id number]
[2021-06-11 09:43] VITALS: O2SAT 100
[2021-06-11 09:44] VITALS: BP 104/74; TEMP 97.5
== END 2021-06-11 09:54 | disposition home or self-care (01) ==
LOC: OR 07:29
PROVIDERS: ATTEND Surgery
PROC: 0DJD8ZZ Inspection of Lower Intestinal Tract, Via Natural or Artificial Opening Endoscopic (ICD-10-PCS; principal; 2021-06-11 08:30)
DX: K62.5 Hemorrhage of anus and rectum (principal); K40.90 Unilateral inguinal hernia, without obstruction or gangrene, not specified as recurrent; K64.1 Second degree hemorrhoids; K64.5 Perianal venous thrombosis; Z88.0 Allergy status to penicillin; Z20.822 Contact with and (suspected) exposure to COVID-19
CPT/HCPCS: 85025; 36415; 45378; U0003; J2704 ×2; J7120

== ENCOUNTER 2022-01-24 09:27 | Emergency (ER) | payer BC, SELFPAY ==
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
[2022-01-24 11:14] LABS: SARS-COV-2 RT PCR NEGATIVE (NEGATIVE)
--- NOTE | 2022-01-24 11:22 | ER ---
Nurse's Notes [facility] Name: Kimberly Castaneda Age: 21 yrs Sex: Male : 2000 Arrival Date: 01/24/2022 Time: 09:29 Bed IW4 Private MD: Diagnosis: Acute pharyngitis, unspecified Presentation: 01/24 10:18 Chief complaint: Patient states: UHMM, it started late last night and it progressively jh5 gotten worse. vomiting, muscle aches/body aches, sore throat. Coronavirus screen: Vaccine status: Patient reports being unvaccinated. Client denies travel out of the [place] in the last 14 days. Ebola Screen: Patient negative for fever greater than or equal to 101.5 degrees Fahrenheit, and additional compatible Ebola Virus Disease symptoms Patient denies exposure to infectious person. Patient denies travel to an Ebola-affected area in the 21 days before illness onset. Initial Sepsis Screen: Does the patient meet any 2 criteria? No. Patient's initial sepsis screen is negative. Does the patient have a suspected source of infection? No. Patient's initial sepsis screen is negative. Risk Assessment: Do you want to hurt yourself or someone else? Patient reports no desire to harm self or others. 10:18 Method Of Arrival: Ambulatory [facility] 10:18 Acuity: [place] 4 [facility] Triage Assessment: 10:20 General: Appears uncomfortable, slender, Behavior is calm, cooperative, appropriate for [facility] age. Pain: Denies pain. EENT: Reports nasal congestion nasal discharge. Historical: - Allergies: 10:20 PENICILLINS; [facility] - PMHx: 10:20 "high potassium levels"; Depression; [facility] - Immunization history:: Adult Immunizations up to date. - Social history:: Smoking status: Reported history of juuling and/or vaping. Vital Signs: 10:18 BP 105 / 70; Pulse 97; Resp 18; Pulse Ox 98% ; Weight 68.95 kg; Height 5 ft. 11 in. [facility] (180.34 cm); Pain 0/10; 10:18 Body Mass Index 21.20 (68.95 kg, 180.34 cm) [facility] ED Course: 09:29 Patient arrived in ED. mr 09:33 oJse Warner PA is PHCP. [facility] 09:33 Gaurav Garcia DO is Attending Physician. m 10:20 Triage completed. 5 10:20 Arm band placed on right wrist. 5 10:21 Strep Sent. 5 10:21 COVID-19/FLU A+B Sent. jh5 Administered Medications: No medications were administered Outcome: 11:22 Discharge ordered by . [facility] 11:28 Patient left the ED. ld1 Signatures: Jose Warner PA PA [facility] Meche Galvin mr Lucero Alejandra, RN RN ld1 Guerda Mcgee, KIMO RN jh5
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
[2022-01-24 11:41] VITALS: BP 105/70; O2SAT 98
== END 2022-01-24 11:28 | disposition home or self-care (01) ==
LOC: ER 09:27
DX: J02.9 Acute pharyngitis, unspecified (principal); Z20.822 Contact with and (suspected) exposure to COVID-19; Z88.0 Allergy status to penicillin
CPT/HCPCS: 87070; 87081; 0240U; 99282

== ENCOUNTER 2022-03-23 08:04 | Emergency (ER) | payer BC ==
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
[2022-03-23] MEDS ORDERED: HYDROCODONE/CHLORPHEN 5 ML/OSYR ONE (08:37)
[2022-03-23] MEDS ORDERED: ONDANSETRON 4 MG (ODT) TAB ONE (08:37)
[2022-03-23 09:44] LABS: SARS-COV-2 RT PCR POSITIVE (NEGATIVE)
--- NOTE | 2022-03-23 10:03 | ER ---
Nurse's Notes [facility] Name: Kimberly Castaneda Age: 21 yrs Sex: Male : 2000 Arrival Date: 03/23/2022 Time: 08:06 Bed 11 Private MD: Diagnosis: Coronavirus infection, unspecified;Otitis media, unspecified, left ear Presentation: 03/23 08:09 Chief complaint: Patient states: "I started with a headache and neck pain yesterday and aa5 now my legs are hurting". Pt also reports fever up to 102.8*F and nausea/diarrhea. Coronavirus screen: fever. Ebola Screen: Patient denies travel to an Ebola-affected area in the 21 days before illness onset. Initial Sepsis Screen: Does the patient meet any 2 criteria? HR > 90 bpm. Does the patient have a suspected source of infection? No. Patient's initial sepsis screen is negative. Risk Assessment: Do you want to hurt yourself or someone else? Patient reports no desire to harm self or others. Onset of symptoms was March 2022. 08:09 Method Of Arrival: Ambulatory aa5 08:09 Acuity: [place] 3 aa5 Triage Assessment: 08:45 General: Appears in no apparent distress. Behavior is calm, cooperative. Pain: ap3 Complains of pain in back. Neuro: Level of Consciousness is awake, alert, obeys commands, Oriented to person, place, time, situation, Appropriate for age Gait is steady. Cardiovascular: Patient's skin is warm and dry. Respiratory: Reports cough that is productive, Airway is patent Respiratory effort is even, unlabored, Respiratory pattern is regular, symmetrical. Historical: - Allergies: 08:10 PENICILLINS; aa5 - PMHx: 08:10 "high potassium levels"; Depression; aa5 - PSHx: 08:10 Appendectomy; aa5 - Immunization history:: Adult Immunizations up to date. - Social history:: Smoking status: Reported history of juuling and/or vaping. Screenin:45 [facility] ED Fall Risk Assessment (Adult) History of falling in the last 3 months, ap3 including since admission No falls in past 3 months (0 pts). Abuse screen: Denies threats or abuse. Nutritional screening: No deficits noted. Tuberculosis screening: No symptoms or risk factors identified. Assessment: 09:34 Reassessment: Patient and/or family updated on plan of care and expected duration. Pain ap3 level reassessed. Patient is alert, oriented x 3, equal unlabored respirations, skin warm/dry/pink. Vital Signs: 08:09 BP 153 / 96; Pulse 115; Resp 20 S; Temp 99.5(TE); Pulse Ox 99% on R/A; Weight 70.31 kg aa5 (R); Height 5 ft. 11 in. (180.34 cm) (R); 08:09 Body Mass Index 21.62 (70.31 kg, 180.34 cm) aa5 ED Course: 08:06 Patient arrived in ED. am2 08:07 [facility] pm1 08:07 Gaurav Garcia DO is Attending Physician. pm1 08:09 Arm band placed on. aa5 08:10 Triage completed. aa5 08:22 Ramona Joens RN is Primary Nurse. ap3 08:38 COVID-19/FLU A+B Sent. ap3 08:38 Strep Sent. ap3 08:45 Patient has correct armband on for positive identification. Bed in low position. Call ap3 light in reach. Side rails up X 1. Pulse ox on. NIBP on. Door closed. Noise minimized. 10:16 No provider procedures requiring assistance completed. Patient did not have IV access ap3 during this emergency room visit. Administered Medications: 08:38 Drug: Ondansetron 4 mg Route: PO; ap3 10:17 Follow up: Response: No adverse reaction ap3 08:38 Drug: Tussionex Pennkinetic ER (chlorpheniramine-hydrocodone) Suspension 5 ml Route: PO;ap3 10:17 Follow up: Response: No adverse reaction; Pain is decreased ap3 Medication: 08:45 VIS not applicable for this client. ap3 Outcome: 10:03 Discharge ordered by . pm1 10:16 Discharged to home ambulatory. ap3 10:16 Condition: good 10:16 Discharge instructions given to patient, Instructed on discharge instructions, follow up and referral plans. Demonstrated understanding of instructions, follow-up care, medications, Prescriptions given X 2. 10:17 Patient left the ED. ap3 Signatures: Adeola Bañuelos RN RN aa5 Pio Dunham NP GASTROENTEROLOGY TECHNICIAN pm1 Ramona Alvarez am2 Ramona Jones, RN RN ap3 Corrections: (The following items were deleted from the chart) 08:13 08:09 Acuity: [place] 3 aa5 aa5 08:13 08:09 BP 153 / 96; Pulse 115bpm; Resp 20bpm; Spontaneous; Pulse Ox 99% RA; Temp 99.5F aa5 Temporal; aa5 09:34 09:34 Reassessment: Patient and/or family updated on plan of care and expected ap3 duration. Pain level reassessed. Patient is alert/active/playful, equal unlabored respirations, skin warm/dry/pink. ap3
--- NOTE | 2022-03-23 10:04 | EDPHYS ---
Physician Documentation [facility] Name: Kimberly Castaneda Age: 21 yrs Sex: Male : 2000 Arrival Date: 03/23/2022 Time: 08:06 Bed 11 Private MD: ED Physician Gaurav Garcia HPI: 03/23 08:19 This 21 yrs old Male presents to ER via Ambulatory with complaints of Fever, bodyaches. pm1 08:19 The patient reports fever, that was measured at 102.8 degrees Fahrenheit. Onset: The pm1 symptoms/episode began/occurred yesterday. Modifying factors: there are no obvious modifying factors. Associated signs and symptoms: Pertinent positives: cough, productive sounding. earache, headache, bodyaches. Severity of symptoms: in the emergency department the symptoms have improved improved temperature. The patient has not experienced similar symptoms in the past. The patient has not recently seen a physician. Historical: - Allergies: 08:10 PENICILLINS; aa5 - PMHx: 08:10 "high potassium levels"; Depression; aa5 - PSHx: 08:10 Appendectomy; aa5 - Immunization history:: Adult Immunizations up to date. - Social history:: Smoking status: Reported history of juuling and/or vaping. ROS: 08:19 Eyes: Negative for injury, pain, redness, and discharge. pm1 08:19 Cardiovascular: Negative for chest pain, palpitations, and edema. 08:19 Abdomen/GI: Negative for abdominal pain, nausea, vomiting, diarrhea, and constipation, Back: Negative for injury and pain, MS/Extremity: Negative for injury and deformity, Skin: Negative for injury, rash, and discoloration. 08:19 Constitutional: Positive for body aches, fever, poor PO intake. 08:19 ENT: Positive for ear pain, sore throat. 08:19 Neck: Positive for of the left base of the skull, pain, Negative for stiffness. 08:19 Respiratory: Positive for cough, "sounds productive". 08:19 Neuro: Positive for headache, Negative for altered mental status, weakness. 08:19 All other systems are negative. Exam: 08:19 Constitutional: This is a well developed, well nourished patient who is awake, alert, pm1 and in no acute distress. Head/Face: Normocephalic, atraumatic. 08:19 Back: No spinal tenderness. No costovertebral tenderness. Full range of motion. Skin: Warm, dry with normal turgor. Normal color with no rashes, no lesions, and no evidence of cellulitis. MS/ Extremity: Pulses equal, no cyanosis. Neurovascular intact. Full, normal range of motion. 08:19 Eyes: Exam is negative for acute changes, Periorbital structures: no acute changes, Extraocular movements: no acute changes, Conjunctiva: no acute changes, no injection. 08:19 ENT: Mouth: Lips: normal, moist, Oral mucosa: normal, pink and intact, moist, Posterior pharynx: Tonsils: are normal in appearance, erythema, that is moderate, peritonsillar mass, is not appreciated. 08:19 Neck: ROM/movement: limited range of motion, is not appreciated, Meningeal signs: are not present, Kernig's sign is negative, Brudzinski's sign is negative, Lymph nodes: lymphadenopathy is appreciated, left anterior cervical. 08:19 Cardiovascular: Rate: tachycardic, actual rate is 115 bpm, Rhythm: regular, Pulses: no pulse deficits are appreciated, Heart sounds: normal, normal S1and S2. 08:19 Respiratory: Exam negative for acute changes, respiratory distress, shortness of breath, Breath sounds: are clear throughout. 08:19 Abdomen/GI: Exam negative for acute changes, Inspection: abdomen appears normal, Palpation: abdomen is soft and non-tender, in all quadrants. 08:19 Neuro: Exam negative for acute changes, Orientation: is normal, Mentation: is normal, Motor: is normal, moves all fours, Gait: is steady, at a normal pace, without difficulty. Vital Signs: 08:09 BP 153 / 96; Pulse 115; Resp 20 S; Temp 99.5(TE); Pulse Ox 99% on R/A; Weight 70.31 kg aa5 (R); Height 5 ft. 11 in. (180.34 cm) (R); 08:09 Body Mass Index 21.62 (70.31 kg, 180.34 cm) aa5 MDM: 08:10 Patient medically screened. ms3 09:09 Data reviewed: vital signs. pm1 09:09 Differential diagnosis: viral Infection, bacterial infection, URI, AOM, strep, covid, pm1 influenza. 09:59 Counseling: I had a detailed discussion with the patient and/or guardian regarding: the pm1 historical points, exam findings, and any diagnostic results supporting the discharge/admit diagnosis, lab results, the need for outpatient follow up, to return to the emergency department if symptoms worsen or persist or if there are any questions or concerns that arise at home. 10:08 I considered the following discharge prescriptions or medication management in the pm1 emergency department patient with pcn allergy and left acute otitis media. Will treat with levaquin 500mg po daily for uncomplicated aom in nonimmunocompromised adults. 10:13 ED course: [place] reviewed. pm1 03/23 08:17 Order name: Strep; Complete Time: 09:10 pm1 03/23 08:17 Order name: COVID-19/FLU A+B; Complete Time: 09:48 pm1 03/23 09:03 Order name: Throat Culture EDMS Administered Medications: 08:38 Drug: Ondansetron 4 mg Route: PO; ap3 10:17 Follow up: Response: No adverse reaction ap3 08:38 Drug: Tussionex Pennkinetic ER (chlorpheniramine-hydrocodone) Suspension 5 ml Route: PO;ap3 10:17 Follow up: Response: No adverse reaction; Pain is decreased ap3 Disposition: 18:44 Co-signature as Attending Physician, Gaurav Garcia DO I was immediately available on-site ms3 in the Emergency Department for consultation in the care of the patient. Disposition Summary: 03/23/22 10:03 Discharge Ordered Location: Home pm1 Problem: new pm1 Symptoms: have improved pm1 Condition: Stable pm1 Diagnosis - Coronavirus infection, unspecified pm1 - Otitis media, unspecified, left ear pm1 Followup: pm1 - With: Emergency Department - When: As needed - Reason: Worsening of condition Followup: pm1 - With: Private Physician - When: 2 - 3 days - Reason: Recheck today's complaints, Continuance of care, Re-evaluation by your physician Discharge Instructions: - Discharge Summary Sheet pm1 - Otitis Media, Adult pm1 - COVID-19 pm1 - COVID-19 Frequently Asked Questions pm1 - 10 Things You Can Do to Manage Your COVID-19 Symptoms at Home - [facility] pm1 - COVID-19: Quarantine vs. Isolation - [facility] pm1 Forms: - Medication Reconciliation Form pm1 - Thank You Letter pm1 - Antibiotic Education pm1 - Prescription Opioid Use pm1 - Work release form pm1 Prescriptions: - Guaifenesin AC 10-100 mg/5 mL Oral Liquid - take 10 milliliters by ORAL route every 4 hours As needed; 240 milliliter; pm1 Refills: 0, Product Selection Permitted - ondansetron 4 mg Oral - take 4 milligrams by SUBLINGUAL route every 8 hours; 15 tablet; Refills: 0, pm1 Product Selection Permitted - levofloxacin 500 mg Oral Tablet - take 1 tablet by ORAL route once daily for 7 days; 7 tablet; Refills: 0, pm1 Product Selection Permitted Signatures: Dispatcher [employer] EDAdeola Vázquez RN RN aa5 Pio Dunham NP WOODWORK TEACHER pm1 Ramona Jones RN RN ap3 Gaurav Garcia DO DO ms3 Corrections: (The following items were deleted from the chart) 10:05 09:10 Group A Bassam Ko [email or web address] reviewed. pm1 pm1
[2022-03-23 10:44] VITALS: BP 135/75; TEMP 98.2; O2SAT 100
== END 2022-03-23 10:17 | disposition home or self-care (01) ==
LOC: ER 08:04
DX: U07.1 COVID-19 (principal); H66.92 Otitis media, unspecified, left ear; Z88.0 Allergy status to penicillin
CPT/HCPCS: 87070; 87081; 0240U; Q0162

== ENCOUNTER 2022-06-20 11:30 | Emergency (ER) | payer BC ==
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
--- NOTE | 2022-06-20 14:35 | ER ---
Nurse's Notes [facility] Name: Kimberly Castaneda Age: 22 yrs Sex: Male : 2000 Arrival Date: 06/20/2022 Time: 11:30 Bed Treatment Private MD: Diagnosis: Syncope Near;Unspecified injury of head, initial encounter Presentation: 06/20 12:54 Chief complaint: Patient states: he passed out while getting ready this morning. ap3 Patient reports hitting his night stand and hitting his left collarbone, left temporal area and right forehead. It is reported there was positive LOC, and the patient does not remember the fall. Patient does report a headache at this time. Coronavirus screen: At this time, the client does not indicate any symptoms associated with coronavirus-19. Ebola Screen: No symptoms or risks identified at this time. Mechanism of Injury: The problem was sustained at home, resulted from unknown. Initial Sepsis Screen: Does the patient meet any 2 criteria? No. Patient's initial sepsis screen is negative. Does the patient have a suspected source of infection? No. Patient's initial sepsis screen is negative. Risk Assessment: Do you want to hurt yourself or someone else? Patient reports no desire to harm self or others. Note patient states this has happened approx 4 times in the last 2 years. 12:54 Method Of Arrival: Ambulatory ap3 12:54 Acuity: [place] 3 ap3 13:01 Onset of symptoms was June 20, 2022. ap3 Triage Assessment: 13:00 General: Appears in no apparent distress. Behavior is calm, cooperative, appropriate ap3 for age. Pain: Complains of pain in head, left shoulder. Neuro: Level of Consciousness is awake, alert, obeys commands, Oriented to person, place, time, situation, Moves all extremities. Gait is steady, Speech is normal, Facial symmetry appears normal, Reports headache. Neuro: Reports a syncopal episode. Cardiovascular: Patient's skin is warm and dry. Respiratory: Airway is patent Respiratory effort is even, unlabored, Respiratory pattern is regular, symmetrical. Historical: - Allergies: 12:59 PENICILLINS; ap3 - PMHx: 12:59 "high potassium levels"; Anxiety; Depression; insomnia; PTSD; ap3 - PSHx: 12:59 Appendectomy; ap3 - Immunization history:: Client reports having NOT received the Covid vaccine. - Social history:: Smoking status: Reported history of juuling and/or vaping. - Family history:: not pertinent. Screenin:01 Abuse screen: Denies threats or abuse. Nutritional screening: No deficits noted. ap3 Tuberculosis screening: No symptoms or risk factors identified. 14:26 [facility] ED Fall Risk Assessment (Adult) History of falling in the last 3 months, mb9 including since admission No falls in past 3 months (0 pts) Confusion or Disorientation No (0 pts) Intoxicated or Sedated No (0 pts) Impaired Gait No (0 pts) Mobility Assist Device Used No (0 pt) Altered Elimination No (0 pt) Score/Fall Risk Level 0 - 2 = Low Risk Oriented to surroundings, Maintained a safe environment, Educated pt \\T\\ family on fall prevention, incl call for assistance when getting out of bed. Assessment: 13:16 Reassessment: Patient and/or family updated on plan of care and expected duration. Pain mb9 level reassessed. Patient is alert, oriented x 3, equal unlabored respirations, skin warm/dry/pink. Patient states feeling better. Patient states symptoms have improved. Vital Signs: 12:54 BP 111 / 63; Pulse 70; Resp 17; Temp 97.7; Pulse Ox 98% ; Weight 70.31 kg; ap3 Busy Coma Score: 12:54 Eye Response: spontaneous(4). Motor Response: obeys commands(6). Verbal Response: ap3 oriented(5). Total: 15. ED Course: 11:32 Patient arrived in ED. mr 11:34 Carrillo Morel MD is Attending Physician. [facility] 12:01 CT Head C Spine In Process Unspecified. EDMS 12:59 Triage completed. ap3 13:01 Arm band placed on right wrist. ap3 13:01 Patient has correct armband on for positive identification. Adult w/ patient. ap3 13:16 No provider procedures requiring assistance completed. EKG done, by ED staff, reviewed mb9 by Carrillo Morel MD. Patient did not have IV access during this emergency room visit. Administered Medications: No medications were administered Medication: 14:26 VIS not applicable for this client. mb9 Outcome: 14:35 Discharge ordered by . [facility] 14:52 Discharged to home ambulatory. mb9 14:52 Condition: stable 14:52 Discharge instructions given to patient, Instructed on discharge instructions, follow up and referral plans. Demonstrated understanding of instructions, follow-up care. 14:53 Patient left the ED. mb9 Signatures: Dispatcher [employer] Carrillo Edmondson MD MD cha Rivera, Mary mr Prokisch, Amanda RN RN ap3 Quang, Meche Trent RN RN mb9
--- NOTE | 2022-06-20 14:35 | EDPHYS ---
Physician Documentation [facility] Name: Kimberly Castaneda Age: 22 yrs Sex: Male : 2000 Arrival Date: 06/20/2022 Time: 11:30 Bed Treatment Private MD: MARCIANO Physician Carrillo Morel HPI: 06/20 14:29 This 22 yrs old Male presents to ER via Ambulatory with complaints of Passed elizabeth Out Prior To Arrival, Head Injury-Adult, Shoulder Injury, Headache. 14:29 The patient has experienced syncope, collapsed, The patient has experienced elizabeth near-syncope, almost passed out, felt dizzy. Onset: The symptoms/episode began/occurred just prior to arrival, this morning. Duration: This was a single episode, that lasted 10 second(s). Context: the episode(s) was witnessed, by family. Associated injury: Head/face:. Associated signs and symptoms: The patient has no apparent associated signs or symptoms. Current symptoms: Currently, the patient is not experiencing any symptoms. The patient has experienced similar episodes in the past, several times. Historical: - Allergies: 12:59 PENICILLINS; ap3 - PMHx: 12:59 "high potassium levels"; Anxiety; Depression; insomnia; PTSD; ap3 - PSHx: 12:59 Appendectomy; ap3 - Immunization history:: Client reports having NOT received the Covid vaccine. - Social history:: Smoking status: Reported history of juuling and/or vaping. - Family history:: not pertinent. ROS: 14:29 Constitutional: Negative for fever, chills, and weight loss, Eyes: Negative for injury, elizabeth pain, redness, and discharge, ENT: Negative for injury, pain, and discharge, Neck: Negative for injury, pain, and swelling, Cardiovascular: Negative for chest pain, palpitations, and edema, Respiratory: Negative for shortness of breath, cough, wheezing, and pleuritic chest pain, Abdomen/GI: Negative for abdominal pain, nausea, vomiting, diarrhea, and constipation, Back: Negative for injury and pain, : Negative for injury, bleeding, discharge, and swelling, MS/Extremity: Negative for injury and deformity, Skin: Negative for injury, rash, and discoloration, Psych: Negative for depression, anxiety, suicide ideation, homicidal ideation, and hallucinations, Allergy/Immunology: Negative for hives, rash, and allergies, Endocrine: Negative for neck swelling, polydipsia, polyuria, polyphagia, and marked weight changes, Hematologic/Lymphatic: Negative for swollen nodes, abnormal bleeding, and unusual bruising. 14:29 Neuro: Positive for syncope. Exam: 14:29 Constitutional: This is a well developed, well nourished patient who is awake, alert, elizabeth and in no acute distress. Head/Face: Normocephalic, atraumatic. Eyes: Pupils equal round and reactive to light, extra-ocular motions intact. Lids and lashes normal. Conjunctiva and sclera are non-icteric and not injected. Cornea within normal limits. Periorbital areas with no swelling, redness, or edema. ENT: Nares patent. No nasal discharge, no septal abnormalities noted. Tympanic membranes are normal and external auditory canals are clear. Oropharynx with no redness, swelling, or masses, exudates, or evidence of obstruction, uvula midline. Mucous membranes moist. Neck: Trachea midline, no thyromegaly or masses palpated, and no cervical lymphadenopathy. Supple, full range of motion without nuchal rigidity, or vertebral point tenderness. No Meningismus. Chest/axilla: Normal chest wall appearance and motion. Nontender with no deformity. No lesions are appreciated. Cardiovascular: Regular rate and rhythm with a normal S1 and S2. No gallops, murmurs, or rubs. Normal PMI, no JVD. No pulse deficits. Respiratory: Lungs have equal breath sounds bilaterally, clear to auscultation and percussion. No rales, rhonchi or wheezes noted. No increased work of breathing, no retractions or nasal flaring. Abdomen/GI: Soft, non-tender, with normal bowel sounds. No distension or tympany. No guarding or rebound. No evidence of tenderness throughout. Back: No spinal tenderness. No costovertebral tenderness. Full range of motion. Male : Normal genitalia with no discharge or lesions. Skin: Warm, dry with normal turgor. Normal color with no rashes, no lesions, and no evidence of cellulitis. MS/ Extremity: Pulses equal, no cyanosis. Neurovascular intact. Full, normal range of motion. Neuro: Awake and alert, GCS 15, oriented to person, place, time, and situation. Cranial nerves II-XII grossly intact. Motor strength 5/5 in all extremities. Sensory grossly intact. Cerebellar exam normal. Normal gait. Psych: Awake, alert, with orientation to person, place and time. Behavior, mood, and affect are within normal limits. 14:29 ECG was reviewed by the Attending Physician. Vital Signs: 12:54 BP 111 / 63; Pulse 70; Resp 17; Temp 97.7; Pulse Ox 98% ; Weight 70.31 kg; ap3 Wilsons Coma Score: 12:54 Eye Response: spontaneous(4). Motor Response: obeys commands(6). Verbal Response: ap3 oriented(5). Total: 15. MDM: 13:09 Patient medically screened. elizabeth 14:32 Differential Diagnosis: cardiac arrhythmia, emotional response, GI bleed, idiopathic elizabeth syncope, seizure, vasovagal episode. Data reviewed: vital signs, nurses notes, EKG, radiologic studies, CT scan. Consideration of Admission/Observation Escalation of care including admission/observation considered. I considered the following discharge prescriptions or medication management in the emergency department Medications were administered in the Emergency Department. See MAR. Test considered but Not performed: Labs: no labs. Care significantly affected by the following chronic conditions: anxiety, depression, ptsd. Counseling: I had a detailed discussion with the patient and/or guardian regarding: the historical points, exam findings, and any diagnostic results supporting the discharge/admit diagnosis, radiology results, the need for outpatient follow up, for definitive care, a family practitioner. 06/20 11:35 Order name: CT Head C Spine; Complete Time: 14:10 [facility] 06/20 11:35 Order name: EKG - Nurse/Tech; Complete Time: 13:15 [facility] 06/20 11:35 Order name: PO challenge; Complete Time: 13:15 [facility] EC:29 Rate is 73 beats/min. Rhythm is regular. QRS Bowlegs is Normal. RI interval is normal. QRS elizabeth interval is normal. QT interval is normal. No Q waves. T waves are Normal. No ST changes noted. Clinical impression: Normal ECG. Administered Medications: No medications were administered Disposition Summary: 06/20/22 14:35 Discharge Ordered Location: Home elizabeth Problem: new elizabeth Symptoms: have improved elizabeth Condition: Stable elizabeth Diagnosis - Syncope Near elizabeth - Unspecified injury of head, initial encounter elizabeth Followup: elizabeth - With: Private Physician - When: 2 - 3 days - Reason: Recheck today's complaints, Continuance of care, Re-evaluation by your physician Discharge Instructions: - Discharge Summary Sheet elizabeth - Head Injury, Adult elizabeth - Near-Syncope elizabeth - Syncope elizabeth - Weakness elizabeth - Near-Syncope, [id number] elizabeth - Weakness, [id number] elizabeth - Head Injury, Adult, [id number] elizabeth Forms: - Medication Reconciliation Form elizabeht - Thank You Letter elizabeth - Antibiotic Education elizabeth - Prescription Opioid Use elizabeth Signatures: Dispatcher [employer] EDCarrillo Dorsey MD MD cha Prokisch, Amanda RN RN ap3
[2022-06-20 15:12] VITALS: BP 111/63; TEMP 97.7; O2SAT 98
--- NOTE | 2022-06-21 15:37 | EKG ---
Test Date: 2022-06-20 Test Time: 13:13:30 Rate Quoting Operator: MB MEASUREMENT RESULTS: Intervals: Rate: 73 NJ: 154 QRSD: 78 QT: 374 QTc: 412 [place]: P: 70 NJ: 154 QRS: 82 T: 69 INTERPRETIVE STATEMENTS: Normal sinus rhythm Normal ECG Compared to ECG 05/15/2022 00:15:04 No significant changes Electronically Signed On 06-21-22 15:34:36 CDT by Vega Love
== END 2022-06-20 14:53 | disposition home or self-care (01) ==
LOC: ER 11:30
DX: R55 Syncope and collapse (principal); S09.90XA Unspecified injury of head, initial encounter; Z88.0 Allergy status to penicillin
CPT/HCPCS: 70450; 72125; 93005; 99283